=== PATIENT | female | born 1975 | race Caucasian/White ===

== ENCOUNTER 2019-04-17 09:54 | Emergency (ER) | payer SELFPAY ==
[2019-04-17 10:05] VITALS: BP 135/113; PULSE 125; RESP 16; TEMP 36.6; O2SAT 94; BMI 37.8
--- NOTE | 2019-04-17 10:10 | W.ED.ALLEREA ---
HPI - Allergic Reaction General: Chief complaint: Allergic Reaction Stated complaint: Reaction Time Seen by Provider: 04/17/19 10:03 Source: patient and family Mode of arrival: ambulatory Limitations: no limitations History of Present Illness: HPI narrative: Patient is a 43-year-old female who presents to ED today with complaints of a pruritic rash; patient tells me she has had this rash intermittently over the past month; reports rash normally responds to Benadryl; patient states about a month ago she did start eating deer meat that she processed herself; other than this she cannot think of any new diet changes, environmental, household, chemical exposures complaint: allergic reaction Onset (ago): day(s) Exposure: unknown Associated symptoms: Deny abdominal pain, nausea or vomiting Review of Systems Const: Denies: fever, chills, body aches or fatigue Eyes: Denies: change in vision ENMT: Denies: throat pain or uvular edema Card: Denies: chest pain, palpitations, irregular heart rhythm or lightheadedness Resp: Denies: shortness of breath, productive cough, non-productive cough or chest congestion GI: Denies: abdominal pain, nausea or vomiting Musc: Denies: neck pain or back pain Skin/Breast: Reports: rash and itching; Denies: sensitivity to light Neuro: Denies: headache PFSH ED PFSH: Statuses (acute, chronic, etc) shown below reflect problem list status as previously entered and may not be historically accurate Social History Smoking and tobacco status: former smoker Physical Exam Const: COMMON NORMALS: no apparent distress, oriented x3, alert and well nourished GENERAL APPEARANCE: cooperative HENMT: MOUTH: oral and palatal mucosa normal THROAT: posterior oropharynx normal; no uvular edema Eye: COMMON NORMALS: PERRL and conjunctivae normal CONJUNCTIVA: Yes conjunctivae normal PUPIL: Yes PERRL Resp: COMMON NORMALS: normal respiratory effort and clear to auscultation bilaterally AUSCULTATION: clear to auscultation bilaterally Cardio: COMMON NORMALS: regular rate and regular rhythm RATE: regular rate RHYTHM: regular rhythm Neuro: COMMON NORMALS: oriented x3 SENSORIUM/ORIENTATION: Yes alert Skin: RASHES: rashes noted (urticaria ) Course Vital Signs: Vital signs: Vital Signs Temperature 97.9 F 04/17/19 10:05 Pulse Rate 99 04/17/19 11:46 Respiratory Rate 16 01/22/20 11:46 Blood Pressure 135/113 04/17/19 10:05 Pulse Oximetry 98 04/17/19 11:46 MDM - Allergic Reaction MDM Narrative: Medical decision making narrative: Rash is slowly starting to fade with IV medications; spoke to her about possibly getting tested for alpha gal as an outpatient; I will place information with case management to get her set up with a PCP; return to ED precautions given Discharge Plan Discharge Patient Disposition: Home, Self-Care Clinical Impression: Urticaria Condition: Stable Prescriptions: No Action Dramamine 50 mg Tablet 50 - 100 mg PO DAILY PRN (Reason: unknown) RF: 0 Benadryl 25 mg Capsule 25 - 50 mg PO Q4H PRN (Reason: unknown) RF: 0 Excedrin Migraine 250-250-65 mg Tablet 1 tab PO BID PRN (Reason: Headache) RF: 0 Discharge Orders: Discharge Order (Routine); Ordered 04/17/19 Ordered By: Ngozi Savage Activity Restrictions/Additional Instructions: Discontinue eating deer meat to see if this correlates with a cessation of your symptoms. Case management will contact you to set you up with a primary care provider. Discharge Date/Time: 04/17/19 11:48 Coding Level of Care Code ED Supervisor Spinning for [employer]ines Exam Problem Focused
[2019-04-17] MEDS: famotidine 20 mg/2 mL INJ 40 MG IVP (10:50)
[2019-04-17] MEDS: diphenhydrAMINE 50 mg/mL SDV 1mL IVP (10:50)
[2019-04-17 11:46] VITALS: PULSE 99; RESP 16; O2SAT 98
--- NOTE | 2019-04-17 12:08 | DCPLANNER ---
global logistics manager was asked to speak with patient about getting established with a primary care physician. global logistics manager spoke with patient, she stated that she did not have a primary care physician, and she did not have insurance. global logistics manager gave patient both of the director of student financial services applications for the hospital to fill out and turn in. global logistics manager offered to help patient get established with a primary care physician, but patient stated that she wanted to wait until she sees where she stands with the director of student financial services. global logistics manager gave patient caser in business card, so if patient would like help in getting established with a primary care physician that child support case officer would be glad to help her get established with a provider.
== END 2019-04-17 11:48 | disposition home or self-care (01) ==
PROVIDERS: Emergency Provider Physician Assistant
DX: L50.9 Urticaria, unspecified (principal); Z87.891 Personal history of nicotine dependence
CPT/HCPCS: 96374; 99281; J1200; J2930; J3490